=== PATIENT | male | born 1965 | race Caucasian/White ===

== ENCOUNTER 2017-12-19 11:47 | Day surgery (SDC) | payer OTHER ==
[~2017-12-19] VITALS: Ht 185.4 cm; Wt 88.6 kg
[~2017-12-19 11:47] MED LIST: MELO15TA13 PO
[2017-12-19] MEDS ORDERED: NO HOME MEDS (12:11)
[2017-12-19 12:23] VITALS: BP 145/96
[2017-12-19] MEDS ORDERED: fentaNYL/PF 50MCG/1 ML 2ML syringe ONE (12:24)
[2017-12-19] MEDS ORDERED: MIDAZolam 5mg/5ml vial ONE (12:24)
[2017-12-19 13:35] VITALS: BP 139/86
[2017-12-19 13:45] VITALS: BP 120/84
[2017-12-19 13:55] VITALS: BP 121/77
== END 2017-12-19 14:35 | disposition home or self-care (01) ==
LOC: GI LAB 11:47
PROVIDERS: ATTEND Internal Medicine Gastroenterology
DX: Z12.11 Encounter for screening for malignant neoplasm of colon (principal); D12.0 Benign neoplasm of cecum; K64.8 Other hemorrhoids; Z98.890 Other specified postprocedural states; Z72.89 Other problems related to lifestyle
CPT/HCPCS: 45385; 99152; J2250; J3010; J7030; A4620; G0500

== ENCOUNTER 2022-12-04 08:05 | Day surgery (SDC) | payer BC ==
[~2022-12-04] VITALS: Ht 185.4 cm; Wt 86.4 kg
[~2022-12-04 08:05] MED LIST changes: -MELO15TA13 PO; +NO HOME MEDS
[2022-12-04 08:20] VITALS: BP 130/92
[2022-12-04] MEDS ORDERED: MULT-1085 PO (08:58)
[2022-12-04] MEDS ORDERED: FISH OIL PO (08:59)
[2022-12-04] MEDS ORDERED: VITAMIN C PO (08:59)
[2022-12-04] MEDS ORDERED: VITAMIN D3 PO (09:00)
[2022-12-04] MEDS ORDERED: VITA-268 PO (09:00)
[2022-12-04] MEDS ORDERED: MAGNESIUM PO (09:01)
[2022-12-04] MEDS ORDERED: MIDAZolam 1 MG/ML 5ML VIAL ONE (09:19)
[2022-12-04] MEDS ORDERED: fentaNYL/PF 50MCG/1 ML 2ML syringe ONE (09:19)
[2022-12-04 10:05] VITALS: BP 131/86
[2022-12-04 10:15] VITALS: BP 127/78
[2022-12-04 10:25] VITALS: BP 128/86
[2022-12-04 10:35] VITALS: BP 132/77
== END 2022-12-04 10:46 | disposition home or self-care (01) ==
LOC: GI LAB 08:05
PROVIDERS: ATTEND Internal Medicine Gastroenterology
DX: Z12.11 Encounter for screening for malignant neoplasm of colon (principal); D12.3 Benign neoplasm of transverse colon; D12.5 Benign neoplasm of sigmoid colon; K64.8 Other hemorrhoids; K57.30 Diverticulosis of large intestine without perforation or abscess without bleeding; Z86.010 Personal history of colon polyps
CPT/HCPCS: 45381; 45385; 99152; J2250; J3010; J7030; Z7512; 45335; 99153; A4615; A4620; C1889